=== PATIENT | female | born 1965 | race Caucasian/White ===

== ENCOUNTER 2016-12-15 20:27 | Observation (INO) ==
[2016-12-15 23:12] LABS: Basophils % 0.6 %; Eosinophils # 0.2 K/mcL (0.0-0.6); Eosinophils % 2.4 %; Hemoglobin 13.1 g/dL (11.5-15.4); Immature Granulocytes % 0.4 % (0-4); Lymphocytes # 1.3 K/mcL (0.6-4.6); Lymphocytes % 18.8 %; Mean Corpuscular HGB Conc 33.6 g/dL (31.6-35.5); Mean Corpuscular Hemoglobin 30.9 pg (28.0-33.3); Mean Platelet Volume 10.6 fL (9.4-12.4); Monocytes # 0.6 K/mcL (0.0-1.3); Monocytes % 8.6 %; Neutrophils # 4.9 K/mcL (1.6-8.9); Platelet Count 248 K/mcL (140-400); Red Blood Count 4.24 M/mcL (3.82-4.97); Red Cell Distribution Width 12.9 % (11.5-14.5); Segmented Neutrophils % 69.2 %
[2016-12-15 23:19] LABS: Prothrombin Time 10.3 Seconds (9.4-12.1)
[2016-12-15 23:22] LABS: Activated Partial Thrombo Time 31.8 Seconds (26.0-36.0)
[2016-12-15 23:25] LABS: BUN/Creatinine Ratio 18 (6-26); Blood Urea Nitrogen 14 mg/dL (7-20); Calcium 9.3 mg/dL (8.6-10.8); Carbon Dioxide 27 mEq/L (19-29); Chloride 105 mEq/L (98-109); Glucose 83 mg/dL (70-99); Osmolality,Calculated 292 (280-300); Potassium 3.8 mEq/L (3.5-4.5); Sodium 141 mEq/L (136-145); eGFR For African Americans > 60 (> 60); eGFR For Non-African Americans > 60 (> 60)
--- NOTE | 2016-12-15 23:44 | Emergency Department Note ---
Disposition Clinical Impression: Hypertensive urgency Chest pain Qualifiers: Chest pain type: precordial pain Qualified Code(s): R07.2 - Precordial pain Disposition: Admitted As Inpatient Condition: Good General Adult HPI - General Chief complaint: ED Chest Pain Stated complaint: CP hypertension Time Seen by Provider: 12/15/16 23:06 Source: patient, family Mode of arrival: private vehicle Limitations: no limitations Nursing Notes Reviewed: Yes Vital Signs Reviewed: Yes - History of Present Illness Pt Subjective Complaint: "My blood pressure has been high since Thursday" Onset (ago): day(s) Location: chest Radiation: non-radiation Pain Severity: mild Quality: sharp Consistency: intermittent (lasts for a second or two then goes away) Improves with: nothing Worsens with: nothing Associated symptoms: Reports: chest pain. Denies: confusion, cough, diaphoresis , fever/chills, headaches, loss of appetite, malaise, nausea/vomiting, rash, seizure, shortness of breath, syncope, weakness Treatments Prior to Arrival: none - Related Data Allergies Allergy/AdvReac Type Severity Reaction Status Date / Time Sulfa (Sulfonamide Allergy Hives Verified 12/15/16 20:33 Antibiotics) All systems ED: reviewed and negative except as stated. Constitutional: Denies: fever, chills, weakness, weight change Eyes: Reports: vision change ("blurry sometimes") ENT ED: Denies: ear pain, throat pain, congestion, dysphagia Cardiovascular: Reports: as per HPI, chest pain, edema. Denies: palpitations, dyspnea on exertion, orthopnea, syncope Respiratory: Denies: cough, dyspnea, wheezes, hemoptysis Gastrointestinal: Denies: abdominal pain, nausea, vomiting Genitourinary: Denies: urgency, dysuria, frequency, hematuria Musculoskeletal: Denies: back pain, neck pain, joint swelling Integumentary: Denies: rash Neurological: Denies: headache, weakness, numbness, paresthesias, confusion, abnormal gait, vertigo Endocrine: Denies: fatigue, heat or cold intolerance, polydipsia, polyuria Hematological/Lymphatic: Denies: easy bleeding, easy bruising, lymphadenopathy Past Medical History - Past Medical History Attestation: Yes The following information was validated with the patient. Source: patient Medical history: Reports: no medical history Surgical history: Reports: non-contributory Psychiatric history: Reports: no psych history - Social History Smoking Status: Former smoker Smokeless Tobacco Status: No Alcohol use: Reports: rarely Drug use: Reports: none Physical Exam - General Limitations: no limitations General appearance: alert, in no apparent distress - Head Head exam: atraumatic, normocephalic, normal inspection - Eye Eye exam: Present: normal appearance, PERRL. Absent: scleral icterus, conjunctival injection, periorbital swelling - ENT ENT exam: mucous membranes moist - Neck Neck exam: Present: normal inspection, full ROM, trachea midline - Chest Chest inspection: Present: normal inspection, symmetric chest wall rise - Respiratory Respiratory exam: Present: normal lung sounds bilaterally. Absent: respiratory distress, wheezes, stridor - Cardiovascular Cardiovascular exam: Present: regular rate, normal rhythm, normal heart sounds - Abdominal Exam Abdominal exam: Present: soft, Non-Tender. Absent: distention, mass, pulsatile mass - Extremities Exam Extremities exam: Present: full ROM, normal capillary refill, pedal edema (2+ non-pitting). Absent: tenderness - Back Exam Back exam: Present: normal inspection - Neurological Exam Neurological exam: Present: alert, oriented X3, CN II-XII intact, normal gait - Psychiatric Psychiatric exam: Present: normal affect, normal mood - Skin Skin exam: Present: warm, dry, intact, normal color Course - Reevaluation(s) Reevaluation #1: BP did not improve much with enalaprilat. Discussed the case with Dr. Stevens. He recommends Labetaolol and agrees with the plan to admit the patient. She has no complaints at this time. Ambulated to bathroom and back without complications. Time: 01:40 - Consultations Consultation #1: Case was discussed with the hospitalist. He will admit the patient. He requests that we gie her an oral dose of Lisinopril since that is what controlled her HTN before. Time: 01:37 Vital Signs Temperature 98.2 F 12/15/16 20:33 Pulse Rate 103 12/15/16 20:33 Respiratory Rate 20 12/15/16 20:33 Blood Pressure 196/136 12/15/16 20:33 O2 Sat by Pulse Oximetry 98 12/15/16 20:33 Temperature 98.2 F 12/15/16 20:33 Pulse Rate 69 12/16/16 01:36 Respiratory Rate 18 12/16/16 01:36 Blood Pressure 164/101 12/16/16 01:36 O2 Sat by Pulse Oximetry 97 12/16/16 01:36 Oxygen Delivery Oxygen Delivery Room Air Medical Decision Making - Medical Records Medical records reviewed: Yes I reviewed the patient's medical records. - Lab Data Lab results reviewed: Yes I reviewed the patient's lab results. Lab results narrative: Laboratory Last Values WBC 7.1 K/mcL (4.3-11.1) 12/15/16 22:48 RBC 4.24 M/mcL (3.82-4.97) 12/15/16 22:48 Hgb 13.1 g/dL (11.5-15.4) 12/15/16 22:48 Hct 39.0 % (35.3-44.9) 12/15/16 22:48 MCV 92.0 fL (83.0-100.0) 12/15/16 22:48 MCH 30.9 pg (28.0-33.3) 12/15/16 22:48 MCHC 33.6 g/dL (31.6-35.5) 12/15/16 22:48 RDW 12.9 % (11.5-14.5) 12/15/16 22:48 Plt Count 248 K/mcL (140-400) 12/15/16 22:48 MPV 10.6 fL (9.4-12.4) 12/15/16 22:48 Immature Gran % 0.4 % (0-4) 12/15/16 22:48 Seg Neutrophils % 69.2 % 12/15/16 22:48 Lymphocytes % 18.8 % 12/15/16 22:48 Monocytes % 8.6 % 12/15/16 22:48 Eosinophils % 2.4 % 12/15/16 22:48 Basophils % 0.6 % 12/15/16 22:48 Neutrophils # 4.9 K/mcL (1.6-8.9) 12/15/16 22:48 Lymphocytes # 1.3 K/mcL (0.6-4.6) 12/15/16 22:48 Monocytes # 0.6 K/mcL (0.0-1.3) 12/15/16 22:48 Eosinophils # 0.2 K/mcL (0.0-0.6) 12/15/16 22:48 Basophils # 0.0 K/mcL (0.0-0.2) 12/15/16 22:48 PT 10.3 Seconds (9.4-12.1) 12/15/16 22:48 INR 1.0 12/15/16 22:48 APTT 31.8 Seconds (26.0-36.0) 12/15/16 22:48 Sodium 141 mEq/L (136-145) 12/15/16 22:48 Potassium 3.8 mEq/L (3.5-4.5) 12/15/16 22:48 Chloride 105 mEq/L (98-109) 12/15/16 22:48 Carbon Dioxide 27 mEq/L (19-29) 12/15/16 22:48 BUN 14 mg/dL (7-20) 12/15/16 22:48 Creatinine 0.80 mg/dL (0.57-1.11) 12/15/16 22:48 Est GFR ( Amer) > 60 (> 60) 12/15/16 22:48 Est GFR (Non-Af Amer) > 60 (> 60) 12/15/16 22:48 BUN/Creatinine Ratio 18 (6-26) 12/15/16 22:48 Glucose 83 mg/dL (70-99) 12/15/16 22:48 Calculated Osmolality 292 (280-300) 12/15/16 22:48 Calcium 9.3 mg/dL (8.6-10.8) 12/15/16 22:48 Troponin I 0.00 ng/mL (0-0.03) 12/15/16 22:48 TSH 4.912 mcIU/mL (0.350-4.840) H 12/15/16 22:48 Urine Color Yellow (Yellow) 12/16/16 01:10 Urine Clarity Turbid (Clear) A 12/16/16 01:10 Urine pH 7.5 pH Units (5.0-8.0) 12/16/16 01:10 Ur Specific [place] 1.016 (1.010-1.025) 12/16/16 01:10 Urine Protein Negative mg/dL (Neg-Trace) 12/16/16 01:10 Urine Glucose (UA) Normal mg/dL (Normal) 12/16/16 01:10 Urine Ketones Negative mg/dL (Negative) 12/16/16 01:10 Urine Blood Negative (Negative) 12/16/16 01:10 Urine Nitrite Negative (Negative) 12/16/16 01:10 Urine Bilirubin Negative (Negative) 12/16/16 01:10 Urine Urobilinogen Normal mg/dL (Normal) 12/16/16 01:10 Ur Leukocyte Esterase Small (Negative) H 12/16/16 01:10 Urine Microscopic RBC 0-3 per hpf (0-3) 12/16/16 01:10 Urine Microscopic WBC 0-3 per hpf (0-3) 12/16/16 01:10 Ur Squamous Epith Cells Many per lpf (None-Few) H 12/16/16 01:10 Urine Bacteria Few per hpf (None-Few) 12/16/16 01:10 Hyaline Casts None Seen per lpf (None-Few) 12/16/16 01:10 Ur Culture Indicated? YES (NO) A 12/16/16 01:10 Result diagrams: 12/15/16 22:48 12/15/16 22:48 Lab Results 12/15/16 12/15/16 12/15/16 Range/Units 22:48 22:48 22:48 WBC 7.1 (4.3-11.1) K/mcL RBC 4.24 (3.82-4.97) M/mcL Hgb 13.1 (11.5-15.4) g/dL Hct 39.0 (35.3-44.9) % MCV 92.0 (83.0-100.0) fL MCH 30.9 (28.0-33.3) pg MCHC 33.6 (31.6-35.5) g/dL RDW 12.9 (11.5-14.5) % Plt Count 248 (140-400) K/mcL MPV 10.6 (9.4-12.4) fL Immature Gran % 0.4 (0-4) % Seg Neutrophils % 69.2 % Lymphocytes % 18.8 % Monocytes % 8.6 % Eosinophils % 2.4 % Basophils % 0.6 % Neutrophils # 4.9 (1.6-8.9) K/mcL Lymphocytes # 1.3 (0.6-4.6) K/mcL Monocytes # 0.6 (0.0-1.3) K/mcL Eosinophils # 0.2 (0.0-0.6) K/mcL Basophils # 0.0 (0.0-0.2) K/mcL PT 10.3 (9.4-12.1) Seconds INR 1.0 APTT 31.8 (26.0-36.0) Seconds Sodium 141 (136-145) mEq/L Potassium 3.8 (3.5-4.5) mEq/L Chloride 105 (98-109) mEq/L Carbon Dioxide 27 (19-29) mEq/L BUN 14 (7-20) mg/dL Creatinine 0.80 (0.57-1.11) mg/dL Est GFR ( Amer) > 60 (> 60) Est GFR (Non-Af Amer) > 60 (> 60) BUN/Creatinine Ratio 18 (6-26) Glucose 83 (70-99) mg/dL Calculated Osmolality 292 (280-300) Calcium 9.3 (8.6-10.8) mg/dL Troponin I (0-0.03) ng/mL TSH 4.912 H (0.350-4.840) mcIU/mL Urine Color (Yellow) Urine Clarity (Clear) Urine pH (5.0-8.0) pH Units Ur Specific [place] (1.010-1.025) Urine Protein (Neg-Trace) mg/dL Urine Glucose (UA) (Normal) mg/dL Urine Ketones (Negative) mg/dL Urine Blood (Negative) Urine Nitrite (Negative) Urine Bilirubin (Negative) Urine Urobilinogen (Normal) mg/dL Ur Leukocyte Esterase (Negative) Urine Microscopic RBC (0-3) per hpf Urine Microscopic WBC (0-3) per hpf Ur Squamous Epith Cells (None-Few) per lpf Urine Bacteria (None-Few) per hpf Hyaline Casts (None-Few) per lpf Ur Culture Indicated? (NO) 12/15/16 12/16/16 Range/Units 22:48 01:10 WBC (4.3-11.1) K/mcL RBC (3.82-4.97) M/mcL Hgb (11.5-15.4) g/dL Hct (35.3-44.9) % MCV (83.0-100.0) fL MCH (28.0-33.3) pg MCHC (31.6-35.5) g/dL RDW (11.5-14.5) % Plt Count (140-400) K/mcL MPV (9.4-12.4) fL Immature Gran % (0-4) % Seg Neutrophils % % Lymphocytes % % Monocytes % % Eosinophils % % Basophils % % Neutrophils # (1.6-8.9) K/mcL Lymphocytes # (0.6-4.6) K/mcL Monocytes # (0.0-1.3) K/mcL Eosinophils # (0.0-0.6) K/mcL Basophils # (0.0-0.2) K/mcL PT (9.4-12.1) Seconds INR APTT (26.0-36.0) Seconds Sodium (136-145) mEq/L Potassium (3.5-4.5) mEq/L Chloride (98-109) mEq/L Carbon Dioxide (19-29) mEq/L BUN (7-20) mg/dL Creatinine (0.57-1.11) mg/dL Est GFR ( Amer) (> 60) Est GFR (Non-Af Amer) (> 60) BUN/Creatinine Ratio (6-26) Glucose (70-99) mg/dL Calculated Osmolality (280-300) Calcium (8.6-10.8) mg/dL Troponin I 0.00 (0-0.03) ng/mL TSH (0.350-4.840) mcIU/mL Urine Color Yellow (Yellow) Urine Clarity Turbid A (Clear) Urine pH 7.5 (5.0-8.0) pH Units Ur Specific [place] 1.016 (1.010-1.025) Urine Protein Negative (Neg-Trace) mg/dL Urine Glucose (UA) Normal (Normal) mg/dL Urine Ketones Negative (Negative) mg/dL Urine Blood Negative (Negative) Urine Nitrite Negative (Negative) Urine Bilirubin Negative (Negative) Urine Urobilinogen Normal (Normal) mg/dL Ur Leukocyte Esterase Small H (Negative) Urine Microscopic RBC 0-3 (0-3) per hpf Urine Microscopic WBC 0-3 (0-3) per hpf Ur Squamous Epith Cells Many H (None-Few) per lpf Urine Bacteria Few (None-Few) per hpf Hyaline Casts None Seen (None-Few) per lpf Ur Culture Indicated? YES A (NO) - Radiology Data Radiology results reviewed: Yes I reviewed the patient's radiology results. Chest X-Ray 12/15/16 20:38 IMPRESSION: No acute cardiopulmonary disease. D/ / Ismael Neal MD / Ismael Neal MD Interpreting Provider: Ismael Neal MD - EKG Data EKG #1 EKG attestation: Yes I reviewed and interpreted this EKG. EKG shows normal: sinus rhythm Rate: normal Rhythm: NSR [place]/QRS: normal When compared to previous EKG there are: no significant changes Interpretation: no acute changes Attestation Statement - Attestation Attestation: I, Tommie Stevens, examined this patient and my medical decision-making was reviewed with the [facility]PA/Advanced Practice Nurse/Resident Physician. I agree with the documented findings, disposition and treatment plan as described except to the extent set forth below. 51-year-old female presents with concerns of elevated blood pressure and chest pain. Patient has not seen her primary care provider in many years. Patient's blood pressure was significantly elevated in the emergency department pain is described as a intermittent pressure in the left chest. Initial troponin negative. Patient's EKG did not show evidence of STEMI. Patient given labetalol in the emergency department and admitted to the hospital for further evaluation of hypertensive urgency/emergency.
[2016-12-15 23:47] LABS: Thyroid Stimulating Hormone 4.912 mcIU/mL (0.350-4.840)
[2016-12-16] MEDS ORDERED: *HR* Labetalol 20 MG/4 ML SYRINGE IVP ONE (00:43)
[2016-12-16 01:22] LABS: Bilirubin,Urine Negative (Negative); Blood,Urine Negative (Negative); Clarity,Urine Turbid (Clear); Color,Urine Yellow (Yellow); Glucose,Urine (UA) Normal (Normal); Ketones,Urine Negative (Negative); Leukocyte Esterase,Urine Small (Negative); Nitrite,Urine Negative (Negative); PH,Urine 7.5 pH Units (5.0-8.0); Protein,Urine Negative (Neg-Trace); Specific Gravity,Urine 1.016 (1.010-1.025); Urobilinogen,Urine Normal (Normal)
[2016-12-16 01:24] LABS: Bacteria,Urine Few per hpf (None-Few); Hyaline Casts,Urine None Seen per lpf (None-Few); RBC,Urine 0-3 per hpf (0-3); Squamous Epithelial Cell,Urine Many per lpf (None-Few); WBC,Urine 0-3 per hpf (0-3)
[2016-12-16] MEDS ORDERED: Aspirin 81 MG TAB.CHEW PO ONE (01:44)
[2016-12-16] MEDS ORDERED: Naloxone 0.4 MG/ML INJ IVP PRN (03:47)
[2016-12-16] MEDS ORDERED: hydroCHLOROthiazide 25 MG TABLET PO STA (03:49)
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
[2016-12-16] MEDS ORDERED: *HR* Labetalol 20 MG/4 ML SYRINGE IVP PRN (03:51)
[2016-12-16] MEDS ORDERED: *HR* Heparin 5,000 UNIT/ML VIAL SQ SCH (07:00)
[2016-12-16 07:14] LABS: BUN/Creatinine Ratio 16 (6-26); Blood Urea Nitrogen 12 mg/dL (7-20); Calcium 8.9 mg/dL (8.6-10.8); Carbon Dioxide 28 mEq/L (19-29); Chloride 105 mEq/L (98-109); Cholesterol 158 mg/dL (< 200); Glucose 86 mg/dL (70-99); HDL Cholesterol 52 mg/dL (40-59); LDL Cholesterol,Calculated 90 mg/dL (0-99); Magnesium 2.1 mg/dL (1.6-2.6); Osmolality,Calculated 291 (280-300); Phosphorous 3.8 mg/dL (2.3-4.7); Potassium 3.5 mEq/L (3.5-4.5); Sodium 141 mEq/L (136-145); Triglycerides 78 mg/dL (< 150); eGFR For African Americans > 60 (> 60); eGFR For Non-African Americans > 60 (> 60)
[2016-12-16] MEDS ORDERED: Ibuprofen 400 MG TABLET PO PRN (08:20)
[2016-12-16 08:44] LABS: Hemoglobin A1C 5.2 %
[2016-12-16] MEDS ORDERED: hydroCHLOROthiazide 25 MG TABLET PO SCH (09:00)
[2016-12-16] MEDS: *HR* Heparin 5,000 UNIT/ML VIAL SQ SCH ×2 (15:12→21:19)
--- NOTE | 2016-12-16 16:02 | Internal Med Progress Note ---
Date of Encounter: 12/16/16 Time of Encounter: 10:00 - Assessment and plan (1) Hypertensive urgency Current Visit: Yes Status: Acute Assessment and plan: Patient is not compliant with BP medication. New medication has been placed. BP get down to 160s/90s. We will continue follow-up BP. Compliance education. (2) DVT prophylaxis Current Visit: Yes Status: Acute Assessment and plan: Heparin subcutaneously (3) Morbid obesity with BMI of 40.0-44.9, adult Current Visit: Yes Status: Chronic Assessment and plan: Need lifestyle modification as outpatient (4) Elevated TSH Current Visit: Yes Status: Acute Assessment and plan: Mild elevated TSH in acute hospitalization setting, need to follow up TSH in 6 weeks as outpatient. - Time Spent With Patient 25 - 35 minutes - Subjective Interval history: Patient is a 51-year-old female admitted for hypertensive urgency. Her past medical history is significant for hypertension. I saw and examined the patient today. Her blood pressure is slightly get down to 160s. Patient compliant of mild headache. BP medication has been further adjusted to lisinopril 20 mg by mouth daily and amlodipine 10 mg daily. Closely follow up blood pressure. - Constitutional Vitals: Temp Pulse Resp BP Pulse Ox 97.6 F 72 16 161/97 98 12/16/16 15:43 12/16/16 15:26 12/16/16 15:26 12/16/16 15:26 12/16/16 15:43 General appearance: Present: A&O X 3, answers questions appropriately - Head Head exam: Present: atraumatic, normocephalic - Eye Eye exam: Present: PERRL, conjuntiva pink, sclera anicteric Pupils: Present: PERRL - Neck Neck exam general surgery: Present: supple, trachea midline. Absent: lymphadenopathy - Respiratory Respiratory exam: Present: CTAB. Absent: accessory muscle use, rales, rhonchi, wheezes - Cardiovascular Cardiovascular exam: Present: RRR, +S1, +S2. Absent: diastolic murmur, gallop, rubs, systolic murmur - GI/Abdominal GI/Abdominal exam: Present: normal bowel sounds, soft, no peritoneal signs. Absent: distended, tenderness - Extremities Exam Extremities exam: Present: warm, radial pulses palpable and symetrical. Absent : calf tenderness, cyanotic, pedal edema - Neurological Exam Neurological exam: Present: CN II-XII intact, oriented X3, no focal deficits. Absent: pronater drift, facial droop, speech deficit - Skin Skin exam: Present: dry, intact Internal Medicine: Result - Labs CBC & Chem 7: 12/15/16 22:48 12/16/16 06:16 Labs: BMP 12/16/16 06:16 Sodium 141 Potassium 3.5 Chloride 105 Carbon Dioxide 28 BUN 12 Creatinine 0.74 Glucose 86 Calcium 8.9 Cardiac Enzymes 12/16/16 12/16/16 Range/Units 06:16 12:07 Troponin I 0.00 0.00 (0-0.03) ng/mL - ABG Interpretation ABG results: PT/INR, D-dimer PT 10.3 Seconds (9.4-12.1) 12/15/16 22:48 Consult Discharge Plan - Plan Referrals: Renzo Gloria Jr, MD [Primary Care Provider] - 12/23/16 4:00 pm
--- NOTE | 2016-12-16 17:18 | Electrocardiograph Report ---
[address] [address] Test Date: 2016-12-15 Pat Name: Marni Ellison Department: 104 Room: 2N01 Gender: F Resin Remover: [facility] : 1965 Requested By: Tommie Stevens Order Number: [id number] Reading MD: Tommie Harry Measurements Intervals Moore Rate: 96 P: 14 ID: [id number] QRS: -20 QRSD: 86 T: 17 QT: 327 QTc: 380 Interpretive Statements SINUS RHYTHM LOW QRS VOLTAGE IN PRECORDIAL LEADS PATTERN CONSISTENT WITH PULMONARY DISEASE MINIMAL VOLTAGE CRITERIA FOR LVH, CONSIDER NORMAL VARIANT Electronically Signed On 12-16-2016 17:17:09 EDT by Tommie Harry
[2016-12-17] MEDS: *HR* Heparin 5,000 UNIT/ML VIAL SQ SCH (05:53)
[2016-12-17] MEDS ORDERED: amLODIPine 5 MG TABLET PO SCH (09:00)
[2016-12-17 12:14] VITALS: BP 150/93
--- NOTE | 2016-12-17 12:49 | Discharge Summary ---
Date of Encounter: 12/17/16 Time of Encounter: 11:00 - Discharge Diagnosis (1) Hypertensive urgency Priority: Primary Status: Acute (2) DVT prophylaxis Priority: Secondary Status: Acute (3) Morbid obesity with BMI of 40.0-44.9, adult Priority: Secondary Status: Chronic (4) Elevated TSH Priority: Secondary Status: Acute - Discharge Medications Prescriptions: Amlodipine [Norvasc] 10 mg PO DAILY #60 tablet Lisinopril [Zestril] 20 mg PO DAILY #60 tablet Home Medications: Cholecalciferol (D-3) [Vitamin D] 1,000 unit PO DAILY 12/16/16 [History] Cyanocobalamin (Vitamin B-12) [Vitamin B12] 1,000 mcg PO DAILY 12/16/16 [History ] Amlodipine [Norvasc] 10 mg PO DAILY #60 tablet 12/17/16 [Rx] Lisinopril [Zestril] 20 mg PO DAILY #60 tablet 12/17/16 [Rx] Allergies/Adverse Reactions: Allergies Sulfa (Sulfonamide Antibiotics) Allergy (Verified 12/15/16 20:33) Hives Date of admission: 12/16/16 01:58 Primary care physician: Renzo Gloria Jr, MD Consults: 12/16/16 08:15 Consult to [facility] Tamper [CONS] Routine Reason for SW Consult: HTN, no insurance and PCP Discharging clinician: Neymar Campos Anticipated date of discharge: 12/17/16 - Patient Status Disposition: Home, Self-Care Condition: Good Overall status at discharge: patient is back to baseline - Discharge Instructions Follow Up With: Renzo Gloria Jr, MD [Primary Care Provider] - 12/23/16 4:00 pm - Diet and Activity Activity: increase activity as tolerated Diet: low fat, low cholesterol, low salt diet Interval History: Ms. Ellison is a 51 year old female with a history of prior HTN who was lost to followup comes in with high BP readings. She reports that she was on HCTZ and lisinopril for HTN prior to 2 years ago with her family physician but her BP normalized and was taken off the medication. Around the same time she lost her insurance so could not followup. For the past 2 years she has not checked her BP. In the past couple of days she noticed blurry vision and headaches. She attributed her headaches to tension/stress since it was occipital and she has had them in the past when she was under a lot of stress. In addition she was experiencing frontal headaches and recurrent blurry vision so on Thursday she checked her BP with her mother's wrist BP device and recorded a BP of 184/ 120mmHg, repeat BP was 220/?, she stopped checking and over the weekend was taking baby aspirin for headaches of about 2-3/10 in severity that was dull, lasting about 1-2 hours. On Thursday she checked her BP again and it was 233/ 140mmHg and that was when she reported to an urgent care where she was asked to proceed to the nearest ER for further management. She reports gnawing left sided chest pain with no associations. Hospital course: Ms. Ellison is a 51 year old female admitted for hypertensive urgency. She was treated with iv labetalol, and by mouth BP medication lisinopril and amlodipine. Her BP has been down to 140/90 level. She has no further lightheadness or blurred vision. Will discharge patient to home and follow-up with PCP. I saw and examined the patient today. She is awake alert and oriented 3. No complaint. Vital signs stable. Patient was educated for medication compliance and lifestyle and diet modification. She was given prescription for 1 month. - Time Spent with Patient Total time spent providing and/or coordinating discharge services: 40 minutes Greater than 30 minutes - Constitutional Vitals: Temp Pulse Resp BP Pulse Ox 98.0 F 60 16 150/93 98 12/17/16 12:11 12/17/16 12:11 12/17/16 12:11 12/17/16 12:11 12/17/16 12:11 General appearance: Present: A&O X 3, answers questions appropriately - Head Head exam: Present: atraumatic, normocephalic - Eye Eye exam: Present: PERRL, conjuntiva pink, sclera anicteric Pupils: Present: PERRL - Neck Neck exam general surgery: Present: supple, trachea midline. Absent: lymphadenopathy - Respiratory Respiratory exam: Present: CTAB. Absent: accessory muscle use, rales, rhonchi, wheezes - Cardiovascular Cardiovascular exam: Present: RRR, +S1, +S2. Absent: diastolic murmur, gallop, rubs, systolic murmur - GI/Abdominal GI/Abdominal exam: Present: normal bowel sounds, soft, no peritoneal signs. Absent: distended, tenderness - Extremities Exam Extremities exam: Present: warm, radial pulses palpable and symetrical. Absent : calf tenderness, cyanotic, pedal edema - Neurological Exam Neurological exam: Present: CN II-XII intact, oriented X3, no focal deficits. Absent: pronater drift, facial droop, speech deficit - Skin Skin exam: Present: dry, intact
== END 2016-12-17 14:32 | disposition home or self-care (01) ==
LOC: EMEROO 20:27 → 2NNU 20:27 → SUATTDRO 12-16 01:58 → 2NNU 12-16 02:49
PROVIDERS: ADMIT Internal Medicine; ATTEND Internal Medicine